=== PATIENT | female | born 1980 | race African-American/Black ===

== ENCOUNTER 2017-08-23 08:50 | Emergency (ER) | payer MEDICAID, OTHER ==
[~2017-08-23] VITALS: Ht 175.3 cm; Wt 145.1 kg
--- NOTE | 2017-08-23 08:54 | NUR ---
Patient taken to bed 03 via wheelchair.
[2017-08-23 09:00] VITALS: BP 150/88
--- NOTE | 2017-08-23 09:00 | NUR ---
PATIENT PRESENTS TO ED WITH ACUTE ONSET LOWER ABDOMINAL PAIN THAT RADIATES TO YOLA FLANKS, W/INTERMITTENT BOUTS OF N/V . PT STATES THE PAIN STARTED THIS AM AND HAS GOTTEN PROGRESSIVELY WORSE. PT DENIES ANY MEDICAL HX . DENIES DIARRHEA; SKIN IS PINK/WARM/DRY; AAOX4 WITH EVEN AND STEADY GAIT; LUNGS CLEAR BL; HR EVEN AND REGULAR; PT DENIES ANY FEVER, CP, SOB, OR COUGH AT THIS TIME; PATIENT STATES PAIN OF 10/10 AT THIS TIME; VSS; PATIENT POSITIONED FOR COMFORT; HOB ELEVATED; BEDRAILS UP X2; BED DOWN. ER MD MADE AWARE OF PT STATUS.
--- NOTE | 2017-08-23 09:29 | NUR ---
Dr. Ruiz evaluating patient at bedside.
[2017-08-23] MEDS ORDERED: NACL 0.9% 1,000 ML IV SCH (09:34)
[2017-08-23] MEDS ORDERED: fentaNYL 0.05 MG/ML VIAL IVP ONE (09:35)
[2017-08-23] MEDS ORDERED: ONDANSETRON 4 MG/2 ML VIAL IVP ONE (09:35)
--- NOTE | 2017-08-23 09:55 | NUR ---
Patient taken to CT via sancho duron.
[2017-08-23 09:57] LABS: BASOPHILS # (AUTO) 0.4 K/uL (0.00-0.22); BASOPHILS % (AUTO) 3.4 % (0.0-2.0); EOSINOPHILS # (AUTO) 0.3 K/uL (0-0.4); EOSINOPHILS % (AUTO) 2.3 % (0.0-4.0); HEMATOCRIT 41.4 % (36-48); HEMOGLOBIN 13.9 g/dL (12.0-16.0); LYMPHOCYTES # (AUTO) 3.1 K/uL (2.5-16.5); LYMPHOCYTES % (AUTO) 27.7 % (20.5-51.1); MEAN CORPUSCULAR HEMOGLOBIN 27 pg (27-31); MEAN CORPUSCULAR HGB CONC 34 g/dL (33-37); MEAN CORPUSCULAR VOLUME 80 fL (80-94); MONOCYTES # (AUTO) 0.5 K/uL (0.8-1.0); MONOCYTES % (AUTO) 4.2 % (1.7-9.3); NEUTROPHILS # (AUTO) 6.7 K/uL (1.8-7.7); NEUTROPHILS % (AUTO) 62.4 % (42.2-75.2); PLATELET COUNT (AUTO) 340 K/uL (140-450); RED BLOOD CELL COUNT(AUTO) 5.15 MIL/uL (4.20-5.40); RED CELL DISTRIBUTION WIDTH 13.3 % (11.6-13.7)
[2017-08-23 10:04] LABS: BILIRUBIN,URINE NEGATIVE (NEGATIVE); BLOOD, URINE 2+ (NEGATIVE); COLOR,URINE YELLOW (YELLOW); LEUKOCYTE ESTERASE ,URINE 2+ (NEGATIVE); NITRITE, URINE NEGATIVE (NEGATIVE); PH,URINE 5.5 (5.0-9.0); UGLUCOSE NEGATIVE (NEGATIVE)
[2017-08-23 10:11] LABS: ANION GAP 11.6 (8-16); CARBON DIOXIDE 25.3 mmol/L (21-32); CREATININE 1.2 mg/dL (0.6-1.3); POTASSIUM 3.9 mmol/L (3.5-5.1)
[2017-08-23 10:16] LABS: ALBUMIN 3.9 g/dL (3.4-5.0)
[2017-08-23 10:23] LABS: APPEARANCE,URINE TURBID (CLEAR)
[2017-08-23 10:24] LABS: RBC,URINE 3-10 (FEW) /HPF (0-5)
[2017-08-23 10:26] LABS: WBC,URINE 16-25 (MOD) /HPF (0-5)
[2017-08-23] MEDS ORDERED: KETOROLAC 30 MG/ML VIAL IVP ONE (10:35)
[2017-08-23 11:34] VITALS: BP 143/78
--- NOTE | 2017-08-23 11:35 | NUR ---
Patient discharged with v/s stable. Written and verbal after care instructions given and explained. Patient alert, oriented and verbalized understanding of instructions. Ambulatory with steady gait. All questions addressed prior to discharge. ID band removed. Patient advised to follow up with PMD. Rx of NORCO, CIPRO, MOTRIN AND FLOMAX given. Patient educated on indication of medication including possible reaction and side effects. Opportunity to ask questions provided and answered.
[2017-08-23 11:52] LABS: TOTAL BILIRUBIN 0.4 mg/dL (0.0-1.0)
== END 2017-08-23 11:35 | disposition home or self-care (01) ==
LOC: MED 08:50
DX: N20.0 Calculus of kidney (principal); N39.0 Urinary tract infection, site not specified; Z88.0 Allergy status to penicillin; Z88.6 Allergy status to analgesic agent; Z88.5 Allergy status to narcotic agent; Z90.89 Acquired absence of other organs; Z90.49 Acquired absence of other specified parts of digestive tract
CPT/HCPCS: 36415; 74176; 80053; 81001; 81025; 83690; 85025; 87086; 96361; 96374; 96375; 99285; J1885; J2405; J3010; J7030

== ENCOUNTER 2017-10-26 09:41 | Emergency (ER) | payer OTHER ==
[~2017-10-26] VITALS: Ht 175.3 cm; Wt 156.0 kg
[2017-10-26 09:45] VITALS: BP 138/79
[2017-10-26] MEDS ORDERED: NACL 0.9% 1,000 ML IV SCH (10:19)
[2017-10-26] MEDS ORDERED: HYDROmorphone PFS 2 MG/ML SYR IVP ONE (10:20)
[2017-10-26] MEDS ORDERED: KETOROLAC 30 MG/ML VIAL IVP ONE (10:20)
[2017-10-26] MEDS ORDERED: ONDANSETRON 4 MG/2 ML VIAL IVP ONE (10:20)
--- NOTE | 2017-10-26 10:30 | NUR ---
BLOOD COLLECTED BY LAB
--- NOTE | 2017-10-26 10:32 | NUR ---
PT TO CT VIA KEVIN
--- NOTE | 2017-10-26 10:41 | NUR ---
PT RETURNED FROM CT
[2017-10-26 10:53] LABS: BASOPHILS # (AUTO) 0.2 K/uL (0.00-0.22); EOSINOPHILS # (AUTO) 0.3 K/uL (0-0.4); EOSINOPHILS % (AUTO) 2.7 % (0.0-4.0); HEMATOCRIT 38.9 % (36-48); HEMOGLOBIN 13.2 g/dL (12.0-16.0); LYMPHOCYTES # (AUTO) 2.4 K/uL (2.5-16.5); LYMPHOCYTES % (AUTO) 21.1 % (20.5-51.1); MEAN CORPUSCULAR HEMOGLOBIN 28 pg (27-31); MEAN CORPUSCULAR HGB CONC 34 g/dL (33-37); MEAN CORPUSCULAR VOLUME 81 fL (80-94); MONOCYTES # (AUTO) 0.6 K/uL (0.8-1.0); MONOCYTES % (AUTO) 5.2 % (1.7-9.3); NEUTROPHILS # (AUTO) 7.7 K/uL (1.8-7.7); PLATELET COUNT (AUTO) 308 K/uL (140-450); RED BLOOD CELL COUNT(AUTO) 4.78 MIL/uL (4.20-5.40); RED CELL DISTRIBUTION WIDTH 13.4 % (11.6-13.7); WHITE BLOOD COUNT (AUTO) 11.2 K/uL (4.8-10.8)
[2017-10-26 11:26] LABS: ANION GAP 14.6 (8-16); CARBON DIOXIDE 25.3 mmol/L (21-32); CREATININE 0.9 mg/dL (0.6-1.3); POTASSIUM 3.9 mmol/L (3.5-5.1)
[2017-10-26 11:32] LABS: ALBUMIN 3.4 g/dL (3.4-5.0); TOTAL BILIRUBIN 0.3 mg/dL (0.0-1.0)
--- NOTE | 2017-10-26 11:47 | NUR ---
LAB WAS CALLED, THEY HAVE NOT PICKED UP UA YET
--- NOTE | 2017-10-26 11:48 | NUR ---
PT ADMITS PAIN HAS SUBSIDED AT THIS TIME---CONTINUES TO WAIT FOR DISPO
[2017-10-26 12:18] LABS: BILIRUBIN,URINE NEGATIVE (NEGATIVE); BLOOD, URINE 3+ (NEGATIVE); COLOR,URINE YELLOW (YELLOW); LEUKOCYTE ESTERASE ,URINE 1+ (NEGATIVE); NITRITE, URINE NEGATIVE (NEGATIVE); UGLUCOSE NEGATIVE (NEGATIVE)
[2017-10-26 12:28] LABS: APPEARANCE,URINE SLIGHTLY HAZY (CLEAR)
[2017-10-26 12:41] LABS: WBC,URINE 6-15 (FEW) /HPF (0-5)
[2017-10-26 12:42] VITALS: BP 119/87
[2017-10-26 12:42] LABS: RBC,URINE 11-20 (MOD) /HPF (0-5)
--- NOTE | 2017-10-26 12:43 | NUR ---
Patient discharged with v/s stable. Written and verbal after care instructions given and explained. Patient alert, oriented and verbalized understanding of instructions. Ambulatory with steady gait. All questions addressed prior to discharge. ID band removed. Patient advised to follow up with PMD. Rx of CIPRO/LEVSIN/FLOMAX/ given. Patient educated on indication of medication including possible reaction and side effects. Opportunity to ask questions provided and answered.
== END 2017-10-26 12:43 | disposition home or self-care (01) ==
LOC: MED 09:41
DX: N39.0 Urinary tract infection, site not specified (principal); K80.10 Calculus of gallbladder with chronic cholecystitis without obstruction; E66.01 Morbid (severe) obesity due to excess calories; I10 Essential (primary) hypertension; Z90.49 Acquired absence of other specified parts of digestive tract; Z88.0 Allergy status to penicillin; Z88.5 Allergy status to narcotic agent
CPT/HCPCS: 36415; 74176; 80053; 81001; 81025; 82150; 83690; 84703; 85025; 87086; 87186; 96361; 96374; 96375; 99285; J1170; J1885; J2405; J7030

== ENCOUNTER 2018-05-03 23:37 | Emergency (ER) | payer OTHER ==
[~2018-05-03] VITALS: Ht 175.3 cm; Wt 158.8 kg
[2018-05-03 23:42] VITALS: BP 134/92
--- NOTE | 2018-05-03 23:50 | NUR ---
PT AMBULATED TO ER BED 6.
--- NOTE | 2018-05-03 23:50 | NUR ---
37 Y/O F PRESESNTS TO THE ED W/C/O "NOT FEELING WELL OVER ALL." PT STATES, "I HAVE PRESSURE IN MY CHEST, EARS AND THROAT. I HAVE FELT NAUSEA FOR 4 DAYS AND DIARRHEA FOR 4 DAYS." PT ALSO STATES, "I THINK I BLEW OUT MY EAR DRUM IN L EAR." PT STATES N/V/D; SKIN IS INTACT, PINK/WARM/DRY; AAOX4, PERRL, WITH EVEN AND STEADY GAIT; LUNGS CLEAR BL, BREATHING UNLABORED; HR EVEN AND REGULAR, BL PERIPHERAL PULSES PRESENT; BS ACTIVE X4, NO TENDERNESS TO PALPATION, NO HEPATOSPLENOMEGALLY PALPATED, RESONANT TO PERCUSSION; PT DENIES ANY FEVER, CP, SOB, OR COUGH AT THIS TIME; PT STATES 6/10 PAIN AT THIS TIME IN L EAR THAT FEELS SHARP; VSS; PATIENT POSITIONED FOR COMFORT; HOB ELEVATED; BEDRAILS UP X2; BED DOWN.
[2018-05-04] MEDS ORDERED: AZITHROMYCIN 250 MG TAB PO ONE (00:05)
[2018-05-04 00:21] VITALS: BP 134/92
--- NOTE | 2018-05-04 00:21 | NUR ---
Patient discharged with v/s stable. Written and verbal after care instructions given and explained. Patient alert, oriented and verbalized understanding of instructions. Ambulatory with steady gait. All questions addressed prior to discharge. ID band removed. Patient advised to follow up with PMD. Rx of AZITHROMYCIN WAS given. Patient educated on indication of medication including possible reaction and side effects. Opportunity to ask questions provided and answered.
== END 2018-05-04 00:21 | disposition home or self-care (01) ==
LOC: MED 23:37
DX: H66.92 Otitis media, unspecified, left ear (principal); J45.909 Unspecified asthma, uncomplicated; Z88.0 Allergy status to penicillin; Z88.6 Allergy status to analgesic agent; Z88.8 Allergy status to other drugs, medicaments and biological substances; Z87.442 Personal history of urinary calculi
CPT/HCPCS: 99283

== ENCOUNTER 2018-08-07 10:16 | Emergency (ER) | payer OTHER ==
[~2018-08-07] VITALS: Ht 175.3 cm; Wt 158.9 kg
[2018-08-07 10:26] VITALS: BP 112/71
[2018-08-07 11:30] VITALS: BP 112/71
== END 2018-08-07 11:31 | disposition home or self-care (01) ==
LOC: MED 10:16
DX: B34.9 Viral infection, unspecified (principal); J45.909 Unspecified asthma, uncomplicated; Z90.49 Acquired absence of other specified parts of digestive tract; Z88.0 Allergy status to penicillin; Z88.5 Allergy status to narcotic agent
CPT/HCPCS: 99283

== ENCOUNTER 2018-09-11 19:05 | Emergency (ER) | payer OTHER ==
[~2018-09-11] VITALS: Ht 175.3 cm; Wt 158.8 kg
[2018-09-11 19:21] VITALS: BP 136/73
--- NOTE | 2018-09-11 19:21 | NUR ---
TO BED # 9 AMBULATORY, REPORT GIVEN TO EMILIE ROJAS
--- NOTE | 2018-09-11 19:40 | NUR ---
PT BIB SELF C/O LOWER BACK PAIN FOR PAST FEW WEEKS AND LEFT BREAST LUMP. NO TRAUMA OR INJURY TO BACK, SKIN WARM, DRY AND INTACT TO AREA. LUMP NOTED TO UNDERSIDE OF LEFT BREAST , NO OPEN, NO BLEEING OR DRAINAGE. PT LAYING IN BED, AWAKE AND ACTING APPROPRIATE, IN NO APPARENT DISTRESS.
--- NOTE | 2018-09-11 19:40 | NUR ---
Dr. Miramontes evaluating patient at bedside.
[2018-09-11 20:24] VITALS: BP 145/67
--- NOTE | 2018-09-11 20:24 | NUR ---
Patient discharged with v/s stable. Written and verbal after care instructions given and explained. Patient alert, oriented and verbalized understanding of instructions. Ambulatory with steady gait. All questions addressed prior to discharge. ID band removed. Patient advised to follow up with PMD. Rx of MMOTRIN, PREDNISONE, BACTRIM given. Patient educated on indication of medication including possible reaction and side effects. Opportunity to ask questions provided and answered.
== END 2018-09-11 20:24 | disposition home or self-care (01) ==
LOC: MED 19:05
DX: N61.0 Mastitis without abscess (principal); M54.42 Lumbago with sciatica, left side; J45.909 Unspecified asthma, uncomplicated; Z88.0 Allergy status to penicillin; Z88.5 Allergy status to narcotic agent; Z88.8 Allergy status to other drugs, medicaments and biological substances
CPT/HCPCS: 81002; 81025; 99283

== ENCOUNTER 2018-10-22 20:15 | Emergency (ER) | payer OTHER ==
[~2018-10-22] VITALS: Ht 175.3 cm; Wt 158.3 kg
[2018-10-22 20:28] VITALS: BP 131/80
--- NOTE | 2018-10-22 20:28 | NUR ---
TO BED # 8 AMBULATORY , REPORT GIVEN TO LU ROJAS
[2018-10-22 20:30] VITALS: BP 131/80
--- NOTE | 2018-10-22 21:15 | NUR ---
PATIENT LEFT WITHOUT BEING SEEN BY DR. helton. NO FURTHER CARE PROVIDED FOR PATIENT.
== END 2018-10-22 21:15 | disposition left against medical advice (07) ==
LOC: MED 20:15
DX: N64.59 Other signs and symptoms in breast (principal); Z53.21 Procedure and treatment not carried out due to patient leaving prior to being seen by health care provider

== ENCOUNTER 2018-11-01 13:20 | Emergency (ER) | payer OTHER ==
[~2018-11-01] VITALS: Ht 175.3 cm; Wt 157.9 kg
[2018-11-01 13:38] VITALS: BP 130/80
--- NOTE | 2018-11-01 15:11 | NUR ---
38 yo f bib self w/ c/o "wound opening". pt reports that she had lumpectomy last week w/ 6 inch incision, stitches removed yesterday. wound w/ areas that are open and bleeding. denies n/v/fever. wound appears clean, no pus noted.
[2018-11-01 16:06] VITALS: BP 130/80
--- NOTE | 2018-11-01 16:06 | NUR ---
Patient discharged with v/s stable. Written and verbal after care instructions given and explained. Patient verbalized understanding. Ambulatory with steady gait. All questions addressed prior to discharge. Advised to follow up with PMD.
== END 2018-11-01 16:06 | disposition home or self-care (01) ==
LOC: MED 13:20
DX: L76.22 Postprocedural hemorrhage of skin and subcutaneous tissue following other procedure (principal); Z48.01 Encounter for change or removal of surgical wound dressing; J45.909 Unspecified asthma, uncomplicated; Z88.0 Allergy status to penicillin; Z88.5 Allergy status to narcotic agent; Z88.8 Allergy status to other drugs, medicaments and biological substances
CPT/HCPCS: 99281; 99283

== ENCOUNTER 2018-11-02 01:29 | Emergency (ER) | payer OTHER ==
[~2018-11-02] VITALS: Ht 175.3 cm; Wt 158.3 kg
[2018-11-02 01:34] VITALS: BP 120/80
--- NOTE | 2018-11-02 01:34 | NUR ---
TO BED # 2 AMBULATORY, REPORT GIVEN TO GARCÍA ROJAS
--- NOTE | 2018-11-02 02:00 | NUR ---
PT BIB SELF C/O WOUND CHECK. PT STATES SHE HAD A ABCESS REMOVED FROM HER LEFT BREAST ON 10/22/18, PT SEEN PRIMARY PROVIDER TODAY AND THE STITCHES WERE REMOVED, PT PRESENTED HERSELF TO [facility] ER AT 1200 WERE STERI-STRIPS WERE APPLIED, PT CAME BACK TONIGHT AFTER FEELING THE INCISION OPENED AGAIN. LEFT BREAST HAS A 6 CM DEHISCENCE W/ MILD SLOTH AND REDNESS, NO SWELLING OR DISCHARGE AT THIS TIME. PMH: ASTHMA
--- NOTE | 2018-11-02 02:30 | NUR ---
STERI-STRIP AND OPTIFOAM BANDAGE APPLIED TO LEFT BREAST. DARIEN IWLLETT AT BEDSIDE DOUGH SCALER AND MIXER. PT TOLERATED WELL.
[2018-11-02 03:05] VITALS: BP 123/78
== END 2018-11-02 03:00 | disposition home or self-care (01) ==
LOC: MED 01:29
DX: S21.002D Unspecified open wound of left breast, subsequent encounter (principal); J45.909 Unspecified asthma, uncomplicated; Z90.49 Acquired absence of other specified parts of digestive tract; Z88.0 Allergy status to penicillin; Z88.5 Allergy status to narcotic agent; Z88.8 Allergy status to other drugs, medicaments and biological substances; X58.XXXD Exposure to other specified factors, subsequent encounter
CPT/HCPCS: 99281

== ENCOUNTER 2018-11-22 18:28 | Emergency (ER) | payer OTHER ==
[~2018-11-22] VITALS: Ht 175.3 cm; Wt 142.9 kg
[2018-11-22 18:50] VITALS: BP 144/89
--- NOTE | 2018-11-22 18:59 | NUR ---
PT TRIAGED, GIVEN URINE CUP AND SENT TO ER MARYBYBERYL.
[2018-11-22] MEDS ORDERED: NACL 0.9% 500 ML IV ONE (20:13)
[2018-11-22 20:30] LABS: BASOPHILS % (AUTO) 0.1 % (0.0-2.0); HEMATOCRIT 41.5 % (36-48); HEMOGLOBIN 13.7 g/dL (12.0-16.0); LYMPHOCYTES # (AUTO) 1.6 K/uL (2.5-16.5); MEAN CORPUSCULAR HEMOGLOBIN 26 pg (27-31); MEAN CORPUSCULAR HGB CONC 33 g/dL (33-37); MEAN CORPUSCULAR VOLUME 80.4 fL (80-94); MONOCYTES # (AUTO) 0.2 K/uL (0.8-1.0); MONOCYTES % (AUTO) 1.8 % (1.7-9.3); NEUTROPHILS # (AUTO) 10.6 K/uL (1.8-7.7); NEUTROPHILS % (AUTO) 85.1 % (42.2-75.2); PLATELET COUNT (AUTO) 348 K/uL (140-450); RED BLOOD CELL COUNT(AUTO) 5.17 MIL/uL (4.20-5.40); RED CELL DISTRIBUTION WIDTH 14.4 % (11.6-13.7); WHITE BLOOD COUNT (AUTO) 12.5 K/uL (4.8-10.8)
--- NOTE | 2018-11-22 20:30 | NUR ---
PT BIB SELF C/O HIGH BS READING AT HOME >600, BS AT TRIAGE 472. PT REPORTS POLYURIA. DENIES CP/ FEVERS/ SOB/ NVD AT THIS TIME. PT STATES SHE HAS INCISION ON L BREAST FROM LUMPECTOMY THAT IS LEAKING AND SHE THINKS MAY BE CAUSING HIGH BS. VSS. ER MD TO SEE PT. WILL CONTINUE TO MONITOR. HX---GESTATIONAL HTN, CHOLECYSTECTOMY, APPENDECTOMY MEDS---NONE
--- NOTE | 2018-11-22 20:40 | NUR ---
Dr. Miramontes evaluating patient at bedside.
[2018-11-22 20:45] LABS: ALBUMIN 4.2 g/dL (3.4-5.0); ANION GAP 12.7 (8-16); ASPARTATE AMINOTRANSFERASE 19 U/L (15-37); CARBON DIOXIDE 26.5 mmol/L (21-32); CHLORIDE 98 mmol/L (98-107); CREATININE 1.1 mg/dL (0.6-1.3); GFR ARICAN-AMERICAN 71 mL/min (>90); POTASSIUM 4.2 mmol/L (3.5-5.1); SODIUM SERUM 133 mmol/L (136-145); TOTAL BILIRUBIN 0.5 mg/dL (0.0-1.0); UREA NITROGEN, BLOOD 16 mg/dL (7-18)
[2018-11-22 20:47] LABS: GLUCOSE 429 mg/dL (74-106)
[2018-11-22 20:52] LABS: ACETONE, SERUM NEGATIVE (NEGATIVE)
[2018-11-22] MEDS ORDERED: INSULIN REGULAR, HUMAN 100 UNIT/ML VIAL IVP ONE ×2 (21:05→22:25)
--- NOTE | 2018-11-22 21:31 | NUR ---
PT REPORTS SHE FEELS LIKE SOMEONE IS SITTING ON HER CHEST. VSS. PT REPORTS MILD DISCOMFORT AT 2/10. NO EDEMA, CAP REFIL <2 SEC, HEART RRR. PT DENIES SOB, ER MD NOTIFIED.
[2018-11-22 23:15] VITALS: BP 130/68
--- NOTE | 2018-11-22 23:15 | NUR ---
Patient discharged with v/s stable. Written and verbal after care instructions given and explained. Patient verbalized understanding. Ambulatory with steady gait. All questions addressed prior to discharge. Advised to follow up with PMD. PT WAITING FOR MOM TO PICK HER UP IN LOBBY.
== END 2018-11-22 23:15 | disposition home or self-care (01) ==
LOC: MED 18:28
DX: E11.65 Type 2 diabetes mellitus with hyperglycemia (principal); J45.909 Unspecified asthma, uncomplicated; Z88.0 Allergy status to penicillin; Z88.5 Allergy status to narcotic agent; Z88.8 Allergy status to other drugs, medicaments and biological substances
CPT/HCPCS: 36415; 80053; 81002; 81025; 82009; 85025; 93005; 96361; 96374; 96375; 99284; J1815; J7030; 96376

== ENCOUNTER 2019-04-09 12:32 | Emergency (ER) | payer OTHER ==
[~2019-04-09] VITALS: Ht 175.3 cm; Wt 154.2 kg
[2019-04-09 13:12] VITALS: BP 141/96
--- NOTE | 2019-04-09 14:26 | NUR ---
38/F BIB SELF C/O HIGH BLOOD SUGAR X TODAY. PT STATES BS WAS 421 LAST SHE CHECKED, CURRENT BS 381. PT STAES SHE TOOK MOM METFORMIN. MEDHX:DIABETES. AAOX 4. PATIENT STATES PAIN OF 0/10 AT THIS TIME. PATIENT POSITIONED FOR COMFORT; HOB ELEVATED; BEDRAILS UP X2; BED DOWN. ER MD MADE AWARE OF PT STATUS.
[2019-04-09] MEDS ORDERED: NACL 0.9% 1,000 ML IV ONE (14:45)
[2019-04-09 15:20] LABS: BASOPHILS # (AUTO) 0.1 K/uL (0.00-0.22); BASOPHILS % (AUTO) 0.8 % (0.0-2.0); EOSINOPHILS # (AUTO) 0.3 K/uL (0-0.4); EOSINOPHILS % (AUTO) 2.5 % (0.0-4.0); HEMATOCRIT 40.5 % (36-48); HEMOGLOBIN 13.4 g/dL (12.0-16.0); LYMPHOCYTES # (AUTO) 3.1 K/uL (2.5-16.5); LYMPHOCYTES % (AUTO) 27.4 % (20.5-51.1); MEAN CORPUSCULAR HEMOGLOBIN 26 pg (27-31); MEAN CORPUSCULAR HGB CONC 33 g/dL (33-37); MEAN CORPUSCULAR VOLUME 79.7 fL (80-94); MONOCYTES # (AUTO) 0.4 K/uL (0.8-1.0); MONOCYTES % (AUTO) 3.6 % (1.7-9.3); NEUTROPHILS # (AUTO) 7.4 K/uL (1.8-7.7); NEUTROPHILS % (AUTO) 65.7 % (42.2-75.2); PLATELET COUNT (AUTO) 325 K/uL (140-450); RED BLOOD CELL COUNT(AUTO) 5.09 MIL/uL (4.20-5.40); RED CELL DISTRIBUTION WIDTH 14.7 % (11.6-13.7); WHITE BLOOD COUNT (AUTO) 11.2 K/uL (4.8-10.8)
[2019-04-09 15:47] LABS: ANION GAP 15.5 (8-16); CARBON DIOXIDE 23.6 mmol/L (21-32); CREATININE 0.9 mg/dL (0.6-1.3); POTASSIUM 4.1 mmol/L (3.5-5.1)
[2019-04-09 15:52] LABS: ALBUMIN 3.7 g/dL (3.4-5.0); TOTAL BILIRUBIN 0.4 mg/dL (0.0-1.0)
[2019-04-09 15:57] LABS: APPEARANCE,URINE SL CLOUDY (CLEAR); BILIRUBIN,URINE NEGATIVE (NEGATIVE); BLOOD, URINE 3+ (NEGATIVE); COLOR,URINE YELLOW (YELLOW); LEUKOCYTE ESTERASE ,URINE TRACE (NEGATIVE); NITRITE, URINE NEGATIVE (NEGATIVE); UGLUCOSE 3+ (NEGATIVE)
[2019-04-09 16:15] LABS: RBC,URINE TOO NUMEROUS TO COUN /HPF (0-5)
--- NOTE | 2019-04-09 16:45 | NUR ---
IV removed, catheter intact and site benign. Applied folded 4x4 gauze and tape to stop bleeding.
[2019-04-09 16:46] VITALS: BP 121/79
--- NOTE | 2019-04-09 16:46 | NUR ---
Patient discharged with v/s stable. Written and verbal after care instructions given and explained. Patient alert, oriented and verbalized understanding of instructions. Ambulatory with steady gait. All questions addressed prior to discharge. ID band removed. Patient advised to follow up with PMD. Rx of Keflex 500mg given. Patient educated on indication of medication including possible reaction and side effects. Opportunity to ask questions provided and answered.
== END 2019-04-09 16:46 | disposition home or self-care (01) ==
LOC: MED 12:32
DX: E11.65 Type 2 diabetes mellitus with hyperglycemia (principal); N39.0 Urinary tract infection, site not specified; R03.0 Elevated blood-pressure reading, without diagnosis of hypertension; J45.909 Unspecified asthma, uncomplicated; Z88.0 Allergy status to penicillin; Z88.5 Allergy status to narcotic agent; Z88.8 Allergy status to other drugs, medicaments and biological substances
CPT/HCPCS: 36415; 80053; 81001; 81025; 82948; 85025; 87086; 96360; 99283; J7030

== ENCOUNTER 2019-05-17 11:43 | Emergency (ER) | payer OTHER ==
[~2019-05-17] VITALS: Ht 175.3 cm; Wt 152.9 kg
[2019-05-17 12:04] VITALS: BP 127/83
--- NOTE | 2019-05-17 12:07 | NUR ---
PT TO ER BED 12
--- NOTE | 2019-05-17 12:14 | NUR ---
C/O HEADACHE WITH N/V X 1 DAY. DENIES TRAUMA OR INJURY. PAIN 05/03. AA0X4. BED IS DOWN, LOCKED, BED RAIL X 1, ERMD TO SEE PT. HX-DM
--- NOTE | 2019-05-17 13:00 | NUR ---
PATIENT LEFT WITHOUT BEING SEEN BY DR. ELISE. NO FURTHER CARE PROVIDED FOR PATIENT.
== END 2019-05-17 13:00 | disposition left against medical advice (07) ==
LOC: MED 11:43
DX: R51 Headache (principal); Z53.21 Procedure and treatment not carried out due to patient leaving prior to being seen by health care provider

== ENCOUNTER 2019-10-02 19:13 | Emergency (ER) | payer OTHER ==
[~2019-10-02] VITALS: Ht 175.3 cm; Wt 151.0 kg
[2019-10-02 19:20] VITALS: BP 135/77
--- NOTE | 2019-10-02 19:23 | NUR ---
TO LOBBY A/W BED AMBULATORY
--- NOTE | 2019-10-02 21:32 | NUR ---
PATIENT LEFT WITHOUT BEING SEEN BY DR. VASQUEZ. PT CALLED X3. NO FURTHER CARE PROVIDED FOR PATIENT.
== END 2019-10-02 21:32 | disposition left against medical advice (07) ==
LOC: MED 19:13
DX: R03.0 Elevated blood-pressure reading, without diagnosis of hypertension (principal); R42 Dizziness and giddiness; R19.7 Diarrhea, unspecified; R11.0 Nausea; Z53.21 Procedure and treatment not carried out due to patient leaving prior to being seen by health care provider

== ENCOUNTER 2020-04-09 16:21 | Emergency (ER) | payer OTHER, SELFPAY ==
[~2020-04-09] VITALS: Ht 167.6 cm; Wt 172.4 kg
[2020-04-09 16:28] VITALS: BP 143/93
--- NOTE | 2020-04-09 16:30 | NUR ---
PT PLACED IN TENT FOR COVID PRECAUTIONS
--- NOTE | 2020-04-09 16:36 | NUR ---
39 Y/O FEMALE FROM HOME C/O HEADACHE, DRY COUGH, LOSS OF APPETITE, DIMINISHED SMELL AND TASTE AND DIARRHEA X 1 WK. DENIES V/D. RR EVEN AND UNLABORED, SLIGHTLY T[place]YPNIC. SKIN WARM AND DRY TO THE TOUCH. AWAKE AND ALERT. DOES NOT APPEAR IN DISTRESS
--- NOTE | 2020-04-09 16:42 | NUR ---
COVID SWAB COLLECTED FROM PT
[2020-04-09] MEDS ORDERED: ONDANSETRON 4 MG/2 ML VIAL IVP ONE (17:10)
[2020-04-09] MEDS ORDERED: NACL 0.9% 1,000 ML IV ONE (17:10)
[2020-04-09 17:48] VITALS: BP 143/93
--- NOTE | 2020-04-09 17:48 | NUR ---
Patient discharged with v/s stable. Written and verbal after care instructions given and explained. Patient alert, oriented and verbalized understanding of instructions. Ambulatory with steady gait. All questions addressed prior to discharge. ID band removed. Patient advised to follow up with PMD. Rx of Promethazine, Flucticasone, Albuterol and Ibuprofen given. Patient educated on indication of medication including possible reaction and side effects. Opportunity to ask questions provided and answered.
--- NOTE | 2020-04-10 13:48 | NUR ---
POSITIVE COVID RESULTS RECEIVED FROM LAB. REQUESTED HARD COPY TO BE TAKEN TO LAB. COPY WILL BE PLACED IN INFECTION CONTROL'S MAILBOX.
== END 2020-04-09 17:48 | disposition home or self-care (01) ==
LOC: MED 16:21 → EEVIPCON 16:21 → MED 17:48
DX: U07.1 COVID-19 (principal); J45.909 Unspecified asthma, uncomplicated; E11.9 Type 2 diabetes mellitus without complications; I10 Essential (primary) hypertension; Z88.0 Allergy status to penicillin; Z88.5 Allergy status to narcotic agent; Z88.8 Allergy status to other drugs, medicaments and biological substances; Z90.49 Acquired absence of other specified parts of digestive tract
CPT/HCPCS: 71045; 99284; U0003

== ENCOUNTER 2020-04-24 20:28 | Emergency (ER) | payer OTHER, SELFPAY ==
[~2020-04-24] VITALS: Ht 175.3 cm; Wt 147.4 kg
[2020-04-24 20:35] VITALS: BP 146/93
[2020-04-24 22:14] VITALS: BP 146/93
== END 2020-04-24 22:14 | disposition home or self-care (01) ==
LOC: MED 20:28
DX: U07.1 COVID-19 (principal); R07.9 Chest pain, unspecified; R06.00 Dyspnea, unspecified; E11.9 Type 2 diabetes mellitus without complications; I10 Essential (primary) hypertension; J45.909 Unspecified asthma, uncomplicated; Z88.0 Allergy status to penicillin; Z88.8 Allergy status to other drugs, medicaments and biological substances; Z88.6 Allergy status to analgesic agent
CPT/HCPCS: 71045; 93005; 99285; U0003; 99284

== ENCOUNTER 2020-12-14 18:48 | Emergency (ER) | payer OTHER, SELFPAY ==
[~2020-12-14] VITALS: Ht 175.3 cm; Wt 139.3 kg
[2020-12-14 18:59] VITALS: BP 134/73
[2020-12-14] MEDS: KETOROLAC 30 MG/ML VIAL IM ONE (19:35)
[2020-12-14] MEDS: diazePAM 5 MG TAB PO ONE (19:36)
[2020-12-14] MEDS ORDERED: METH750T5 PO (20:24)
[2020-12-14 20:30] VITALS: BP 134/73
== END 2020-12-14 20:30 | disposition home or self-care (01) ==
LOC: MED 18:48
DX: S39.012A Strain of muscle, fascia and tendon of lower back, initial encounter (principal); E11.9 Type 2 diabetes mellitus without complications; X58.XXXA Exposure to other specified factors, initial encounter; Y93.89 Activity, other specified; Y92.89 Other specified places as the place of occurrence of the external cause; Y99.8 Other external cause status
CPT/HCPCS: 82948; 96372; 99283; J1885

== ENCOUNTER 2021-01-03 09:55 | Emergency (ER) | payer OTHER, SELFPAY ==
[~2021-01-03] VITALS: Ht 175.3 cm; Wt 140.2 kg
[~2021-01-03 09:55] MED LIST: METH750T5 PO
[2021-01-03 10:00] VITALS: BP 134/80
--- NOTE | 2021-01-03 10:30 | NUR ---
40 YEAR OLD FEMALE COMPLAINS OF COUGH, SORE THROAT, NASAL CONGESTION X 3 DAYS. PT AOX4, BREATHING EVEN AND UNLABORED, SKIN WARM AND DRY. BED IN LOWEST POSITION, LOCKED, BED RAIL UPX1. PMH - DM2 ALLERGIES - CHARTED
[2021-01-03] MEDS ORDERED: ACETAMINOPHEN 650 MG/20.3 ML UDC PO STA (10:34)
[2021-01-03] MEDS ORDERED: guaiFENesin 20 MG/ML UDC PO STA (10:34)
[2021-01-03] MEDS ORDERED: DEXAMETHASONE 10 MG/ML VIAL IM ONE (10:35)
[2021-01-03] MEDS ORDERED: KETOROLAC 30 MG/ML VIAL IM ONE (10:35)
[2021-01-03] MEDS ORDERED: AZIT250T11 PO (10:39)
[2021-01-03] MEDS ORDERED: GUAI-934 PO (10:39)
--- NOTE | 2021-01-03 10:50 | NUR ---
PT MEDICATIONS ADMINISTERED ORDERED
--- NOTE | 2021-01-03 11:06 | NUR ---
Flaquito frank in [facility] - 01/03/21 at 1113 by MEDJJ PT VERBALLY ABUSE TO STAFF, SECURITY AT BEDSIDE.
[2021-01-03 11:12] VITALS: BP 134/80
--- NOTE | 2021-01-03 11:13 | NUR ---
Patient discharged with v/s stable. Written and verbal after care instructions given and explained. Patient alert, oriented and verbalized understanding of instructions. Ambulatory with steady gait. All questions addressed prior to discharge. ID band removed. Patient advised to follow up with PMD. Rx of azithromycin and guaifen/phenyleph/acetaminophen given. Patient educated on indication of medication including possible reaction and side effects. Opportunity to ask questions provided and answered.
[2021-01-03] MEDS ORDERED: ONDA8TAB87 PO (21:48)
== END 2021-01-03 11:13 | disposition home or self-care (01) ==
LOC: MED 09:55
DX: J06.9 Acute upper respiratory infection, unspecified (principal); Z20.822 Contact with and (suspected) exposure to COVID-19; E11.9 Type 2 diabetes mellitus without complications
CPT/HCPCS: 96372; 99284; J1100; J1885; U0003

== ENCOUNTER 2021-01-03 20:09 | Emergency (ER) | payer OTHER, SELFPAY ==
[~2021-01-03] VITALS: Ht 175.3 cm; Wt 140.2 kg
[~2021-01-03 20:09] MED LIST changes: +AZIT250T11 PO; +GUAI-934 PO
[2021-01-03 20:20] VITALS: BP 158/82
--- NOTE | 2021-01-03 20:28 | NUR ---
PT AMBULATORY TO LOBBY TO [facility]
--- NOTE | 2021-01-03 20:35 | NUR ---
40/F BIB SELF COMPLAINING OF NAUSEA, DIARRHEA, DIZZINESS, HYPERGLYCEMIA. PT DENIES ANY PAIN AT THIS TIME. PT AAOX4, AMBULATORY, RESPIRATIONS EVEN AND UNLABORED TO ROOM AIR. PT HOOKED TO MONITORS, VS STABLE. ACCU CHECK DONE BLOOD SUGAT 573. MD MADE AWARE. WILL CONTINUE TO MONITOR. PMH: ASTHMA, DM ALLERGY: PCN, METFORMIN, DIPHENHYDRAMINE, MORPHINE
--- NOTE | 2021-01-03 20:43 | NUR ---
PT AMBULATED TO BED #11
[2021-01-03] MEDS ORDERED: ONDANSETRON 4 MG ODT PO ONE (20:50)
[2021-01-03 21:00] VITALS: BP 140/80
--- NOTE | 2021-01-03 21:41 | NUR ---
Dr. Ruiz examining patient.
[2021-01-03] MEDS ORDERED: ONDA8TAB87 PO (21:48)
== END 2021-01-03 21:55 | disposition home or self-care (01) ==
LOC: MED 20:09
DX: E11.65 Type 2 diabetes mellitus with hyperglycemia (principal); I10 Essential (primary) hypertension; J45.909 Unspecified asthma, uncomplicated; Z88.0 Allergy status to penicillin; Z88.6 Allergy status to analgesic agent
CPT/HCPCS: 82948; 99283; Q0162

== ENCOUNTER 2021-03-19 08:42 | Emergency (ER) | payer OTHER ==
[~2021-03-19] VITALS: Ht 175.3 cm; Wt 138.8 kg
[~2021-03-19 08:42] MED LIST changes: +ONDA8TAB87 PO
[2021-03-19 08:48] VITALS: BP 131/87
--- NOTE | 2021-03-19 08:53 | NUR ---
pt ambulated to bed 11.
--- NOTE | 2021-03-19 08:59 | NUR ---
DR TUCKER AT BEDSIDE EXAMINING PATIENT
[2021-03-19] MEDS ORDERED: KETOROLAC 30 MG/ML VIAL IM ONE (09:05)
--- NOTE | 2021-03-19 09:26 | NUR ---
40/ FEMALE C/O RIGHT UPPER BACK PAIN X TODAY. DENIES DYSURIA. PATIENT STATES PAIN "RADIATES FROM NECK TO RIGHT ARM DOWN TO ELBOW." STATES WOKE AND WAS STRETCHING WHEN HEARD A POP AND FELT THE PAIN. STATES PAIN IS 10/10 AND UNABLE TO MOVE UPPER BODY WITHOUT ANY PAIN PMH: DM,ASTHMA, APPENDECTOMY, GALL BLADDER REMOVAL
[2021-03-19 09:48] VITALS: BP 125/78
== END 2021-03-19 09:48 | disposition home or self-care (01) ==
LOC: MED 08:42
DX: M54.6 Pain in thoracic spine (principal); E11.65 Type 2 diabetes mellitus with hyperglycemia; J45.909 Unspecified asthma, uncomplicated; I10 Essential (primary) hypertension; Z79.899 Other long term (current) drug therapy; Z88.0 Allergy status to penicillin; Z88.8 Allergy status to other drugs, medicaments and biological substances; Z88.5 Allergy status to narcotic agent
CPT/HCPCS: 81002; 81025; 96372; 99283; J1885

== ENCOUNTER 2021-05-31 17:28 | Emergency (ER) | payer OTHER ==
[~2021-05-31] VITALS: Ht 175.3 cm; Wt 139.3 kg
[2021-05-31 18:33] VITALS: BP 139/70
--- NOTE | 2021-05-31 18:42 | NUR ---
Flaquito frank in ED - 05/31/21 at 1843 by [facility] CALLED X 1. NO SHOW.PATIENT LEFT WITHOUT BEING TRIAGED. NO FURTHER CARE PROVIDED FOR PATIENT.
--- NOTE | 2021-05-31 18:43 | NUR ---
patient to lobby for next available bed.
--- NOTE | 2021-05-31 19:53 | NUR ---
PT INFORMED ADMIT STUDY ASSISTANT THAT SHE WAS LEAVING. PATIENT LEFT WITHOUT BEING SEEN BY DR. HERNANDEZ. NO FURTHER CARE PROVIDED FOR PATIENT.
== END 2021-05-31 19:53 | disposition left against medical advice (07) ==
LOC: MED 17:28
DX: H57.89 Other specified disorders of eye and adnexa (principal); Z53.21 Procedure and treatment not carried out due to patient leaving prior to being seen by health care provider

== ENCOUNTER 2021-10-05 10:20 | Emergency (ER) | payer OTHER ==
[~2021-10-05] VITALS: Ht 175.3 cm; Wt 132.0 kg
[2021-10-05 10:29] VITALS: BP 139/79
--- NOTE | 2021-10-05 10:39 | NUR ---
TENT 3. HANDED ON URINE CUP.
--- NOTE | 2021-10-05 10:42 | NUR ---
BIB SELF C/O DIZZINESS, RANDALL X 3 DAYS , DIARRHEA , 2/10 MID ABD PAIN X 1 WEEK. PMH: DM, ASTHMA
--- NOTE | 2021-10-05 10:43 | NUR ---
BLOOD SUGAR 196 AT THIS TIME.
[2021-10-05] MEDS ORDERED: ONDA8TAB87 PO (12:30)
[2021-10-05] MEDS ORDERED: MECL-303 PO (12:30)
--- NOTE | 2021-10-05 14:20 | NUR ---
COVID PCR SWAB DONE.
--- NOTE | 2021-10-05 14:25 | NUR ---
PT CAN'T PROVIDED URINE AT THIS TIME.
[2021-10-05 14:27] VITALS: BP 127/65
--- NOTE | 2021-10-05 14:27 | NUR ---
Patient discharged with v/s stable. Written and verbal after care instructions given and explained. Patient alert, oriented and verbalized understanding of instructions. Ambulatory with steady gait. All questions addressed prior to discharge. ID band removed. Patient advised to follow up with PMD. Rx of ZOFRAN AND ANTIVERT given. Patient educated on indication of medication including possible reaction and side effects. Opportunity to ask questions provided and answered.
== END 2021-10-05 14:27 | disposition home or self-care (01) ==
LOC: MED 10:20
DX: R42 Dizziness and giddiness (principal); Z20.822 Contact with and (suspected) exposure to COVID-19; R11.0 Nausea; J45.909 Unspecified asthma, uncomplicated; E11.9 Type 2 diabetes mellitus without complications; I10 Essential (primary) hypertension; Z90.49 Acquired absence of other specified parts of digestive tract; Z98.890 Other specified postprocedural states; Z79.899 Other long term (current) drug therapy; Z88.0 Allergy status to penicillin; Z88.8 Allergy status to other drugs, medicaments and biological substances; Z88.5 Allergy status to narcotic agent
CPT/HCPCS: 99283; U0003

== ENCOUNTER 2022-03-11 10:18 | Emergency (ER) | payer OTHER ==
[~2022-03-11] VITALS: Ht 175.3 cm; Wt 133.4 kg
[~2022-03-11 10:18] MED LIST changes: +MECL-303 PO
[2022-03-11 10:38] VITALS: BP 150/84
[2022-03-11] MEDS ORDERED: KETOROLAC 30 MG/ML VIAL IM ONE (10:55)
[2022-03-11] MEDS ORDERED: LID5T TP (11:37)
[2022-03-11] MEDS ORDERED: NAPR-54 PO (11:37)
[2022-03-11] MEDS ORDERED: METH-1681 PO (11:37)
--- NOTE | 2022-03-11 11:37 | NUR ---
PT'S LEFT KNEE WRAPPED WITH 3" JOVITA WRAP. CMS WNL BEFORE AND AFTER.
[2022-03-11 11:46] VITALS: BP 145/78
--- NOTE | 2022-03-11 11:47 | NUR ---
Patient discharged with v/s stable. Written and verbal after care instructions given and explained. Patient alert, oriented and verbalized understanding of instructions. Ambulatory with steady gait. All questions addressed prior to discharge. ID band removed. Patient advised to follow up with PMD. Rx of LIDODERM, ROBAXIN, NAPROSYN given. Patient educated on indication of medication including possible reaction and side effects. Opportunity to ask questions provided and answered.
== END 2022-03-11 11:47 | disposition home or self-care (01) ==
LOC: MED 10:18
DX: S83.92XA Sprain of unspecified site of left knee, initial encounter (principal); J45.909 Unspecified asthma, uncomplicated; E11.9 Type 2 diabetes mellitus without complications; I10 Essential (primary) hypertension; Z79.899 Other long term (current) drug therapy; Z79.1 Long term (current) use of non-steroidal anti-inflammatories (NSAID); Z79.2 Long term (current) use of antibiotics; Z88.0 Allergy status to penicillin; Z88.8 Allergy status to other drugs, medicaments and biological substances; Z88.5 Allergy status to narcotic agent; X58.XXXA Exposure to other specified factors, initial encounter; Y92.89 Other specified places as the place of occurrence of the external cause; Y93.89 Activity, other specified; Y99.8 Other external cause status
CPT/HCPCS: 73562; 81025; 96372; 99283; J1885

== ENCOUNTER 2023-01-20 11:23 | Emergency (ER) | payer OTHER ==
[~2023-01-20] VITALS: Ht 175.3 cm; Wt 135.2 kg
[~2023-01-20 11:23] MED LIST changes: +LID5T TP; +METH-1681 PO; +NAPR-54 PO
[2023-01-20 11:27] VITALS: BP 129/80
--- NOTE | 2023-01-20 11:33 | NUR ---
AMBULATED TO BED 7 WITH STEADY GAIT
[2023-01-20] MEDS ORDERED: BLOOD GLUCOSE MONITORING 1 DEV DEV FS ONE (11:40)
--- NOTE | 2023-01-20 11:45 | NUR ---
Glucose check at bedside. 223 blood glucose. Paitent tolerated.
--- NOTE | 2023-01-20 12:02 | NUR ---
DR FREITAS AT BEDSIDE FOR EVAL
[2023-01-20] MEDS ORDERED: MECLIZINE 25 MG TAB PO ONE (12:10)
--- NOTE | 2023-01-20 13:13 | NUR ---
BLOOD WALKED TO LAB
[2023-01-20 13:36] LABS: BASOPHILS % (AUTO) 0.5 % (0.0-2.0); EOSINOPHILS # (AUTO) 0.3 K/uL (0-0.4); EOSINOPHILS % (AUTO) 3.2 % (0.0-4.0); HEMATOCRIT 36.4 % (36-48); HEMOGLOBIN 12.4 g/dL (12.0-16.0); LYMPHOCYTES % (AUTO) 19.1 % (20.5-51.1); MEAN CORPUSCULAR HEMOGLOBIN 26 pg (27-31); MEAN CORPUSCULAR HGB CONC 34 g/dL (33-37); MEAN CORPUSCULAR VOLUME 76.4 fL (80-94); MONOCYTES # (AUTO) 0.4 K/uL (0.8-1.0); MONOCYTES % (AUTO) 3.9 % (1.7-9.3); NEUTROPHILS # (AUTO) 7.6 K/uL (1.8-7.7); NEUTROPHILS % (AUTO) 73.3 % (42.2-75.2); PLATELET COUNT (AUTO) 294 K/uL (140-450); RED BLOOD CELL COUNT(AUTO) 4.76 MIL/uL (4.20-5.40); RED CELL DISTRIBUTION WIDTH 14.8 % (11.6-13.7); WHITE BLOOD COUNT (AUTO) 10.3 K/uL (4.8-10.8)
[2023-01-20 13:49] LABS: ALBUMIN 3.5 g/dL (3.4-5.0); ANION GAP 14.6 (8-16); ASPARTATE AMINOTRANSFERASE 28 U/L (15-37); CARBON DIOXIDE 22.1 mmol/L (21-32); CHLORIDE 104 mmol/L (98-107); CREATININE 0.8 mg/dL (0.6-1.3); GFR ARICAN-AMERICAN 101 mL/min (>90); GLUCOSE 193 mg/dL (74-106); POTASSIUM 3.7 mmol/L (3.5-5.1); SODIUM SERUM 137 mmol/L (136-145); TOTAL BILIRUBIN 0.5 mg/dL (0.0-1.0); UREA NITROGEN, BLOOD 7 mg/dL (7-18)
[2023-01-20] MEDS ORDERED: MECL-303 PO (14:17)
[2023-01-20 14:34] VITALS: BP 124/78
--- NOTE | 2023-01-20 14:36 | NUR ---
Patient discharged with v/s stable. Written and verbal after care instructions given and explained. Patient alert, oriented and verbalized understanding of instructions. Ambulatory with steady gait. All questions addressed prior to discharge. ID band removed. Patient advised to follow up with PMD. Rx of Antivert given. Patient educated on indication of medication including possible reaction and side effects. Opportunity to ask questions provided and answered.
== END 2023-01-20 14:34 | disposition home or self-care (01) ==
LOC: MED 11:23
DX: R42 Dizziness and giddiness (principal); J45.909 Unspecified asthma, uncomplicated; E11.9 Type 2 diabetes mellitus without complications; I10 Essential (primary) hypertension; Z88.0 Allergy status to penicillin; Z88.5 Allergy status to narcotic agent; Z88.8 Allergy status to other drugs, medicaments and biological substances; Z79.899 Other long term (current) drug therapy
CPT/HCPCS: 36415; 80053; 81025; 84484; 85025; 93005; 99284; J8597

== ENCOUNTER 2023-02-10 10:28 | Emergency (ER) | payer OTHER ==
[~2023-02-10] VITALS: Ht 175.3 cm; Wt 134.7 kg
[2023-02-10 10:37] VITALS: BP 135/84
--- NOTE | 2023-02-10 10:48 | NUR ---
PATIENT AMBULATED TO BED 3 WITHOUT ASSISTANCE.
[2023-02-10] MEDS ORDERED: PRED50TA2 PO (11:25)
[2023-02-10] MEDS ORDERED: CIPR500T4 PO (11:25)
[2023-02-10] MEDS ORDERED: LORA10TA19 PO (11:25)
--- NOTE | 2023-02-10 11:30 | NUR ---
Patient discharged with v/s stable. Written and verbal after care instructions given and explained. Patient alert, oriented and verbalized understanding of instructions. Ambulatory with steady gait. All questions addressed prior to discharge. ID band removed. Patient advised to follow up with PMD. Rx of CIPRO, CLARITIN, PREDNISONE given. Patient educated on indication of medication including possible reaction and side effects. Opportunity to ask questions provided and answered.
== END 2023-02-10 11:30 | disposition home or self-care (01) ==
LOC: MED 10:28
DX: H92.03 Otalgia, bilateral (principal); J45.909 Unspecified asthma, uncomplicated; I10 Essential (primary) hypertension; E11.9 Type 2 diabetes mellitus without complications; Z88.0 Allergy status to penicillin; Z79.1 Long term (current) use of non-steroidal anti-inflammatories (NSAID); Z88.8 Allergy status to other drugs, medicaments and biological substances; Z79.4 Long term (current) use of insulin; Z79.899 Other long term (current) drug therapy
CPT/HCPCS: 99283

== ENCOUNTER 2023-09-20 14:25 | Emergency (ER) | payer OTHER ==
[~2023-09-20] VITALS: Ht 175.3 cm; Wt 124.7 kg
[~2023-09-20 14:25] MED LIST changes: +CIPR500T4 PO; +LORA10TA19 PO; +PRED50TA2 PO
[2023-09-20 14:43] VITALS: BP 135/70; PULSE 97; RESP 18; TEMP 98.3; O2SAT 98
[2023-09-20] MEDS ORDERED: guaiFENesin DM 200/20 MG-10 ML 10 ML UDC PO ONE (14:55)
[2023-09-20] MEDS ORDERED: ALBUTEROL 0.083% 2.5 MG/3 ML NEBU INH ONE ×2 (14:55→16:04)
[2023-09-20 16:07] VITALS: PULSE 75; RESP 16; O2SAT 96
[2023-09-20 16:39] LABS: FLU A ANTIGEN negative (NEGATIVE); FLU B ANTIGEN negative (NEGATIVE)
[2023-09-20] MEDS ORDERED: ALBU0.0912 INH (16:45)
[2023-09-20] MEDS ORDERED: DEXT30SU56 PO (16:45)
== END 2023-09-20 16:57 | disposition home or self-care (01) ==
LOC: MED 14:25
DX: R05.9 Cough, unspecified (principal); R42 Dizziness and giddiness; Z20.822 Contact with and (suspected) exposure to COVID-19; J45.909 Unspecified asthma, uncomplicated; E11.9 Type 2 diabetes mellitus without complications; I10 Essential (primary) hypertension; Z79.899 Other long term (current) drug therapy; Z79.2 Long term (current) use of antibiotics; Z88.0 Allergy status to penicillin; Z88.8 Allergy status to other drugs, medicaments and biological substances; Z88.5 Allergy status to narcotic agent
CPT/HCPCS: 87426; 87804; 94640; 99283; J7613

== ENCOUNTER 2023-10-03 17:00 | Emergency (ER) | payer OTHER ==
[~2023-10-03] VITALS: Ht 175.3 cm; Wt 126.6 kg
[~2023-10-03 17:00] MED LIST changes: +ALBU0.0912 INH; +DEXT30SU56 PO
[2023-10-03 17:06] VITALS: BP 137/87; PULSE 90; TEMP 98; O2SAT 99
[2023-10-03] MEDS ORDERED: DEXAMETHASONE 10 MG/ML VIAL IM ONE (17:20)
[2023-10-03] MEDS ORDERED: ALBUTEROL SULFATE/IPRATROPIU 3 ML SOL IH ONE (17:20)
[2023-10-03 17:34] VITALS: PULSE 88; RESP 18; O2SAT 100
[2023-10-03] MEDS ORDERED: BENZ100C6 PO (17:43)
[2023-10-03 17:57] LABS: FLU A ANTIGEN negative (NEGATIVE); FLU B ANTIGEN NEGATIVE (NEGATIVE)
== END 2023-10-03 17:57 | disposition home or self-care (01) ==
LOC: MED 17:00
DX: J20.9 Acute bronchitis, unspecified (principal); Z20.822 Contact with and (suspected) exposure to COVID-19; J45.909 Unspecified asthma, uncomplicated; E11.9 Type 2 diabetes mellitus without complications; I10 Essential (primary) hypertension; Z79.899 Other long term (current) drug therapy; Z79.1 Long term (current) use of non-steroidal anti-inflammatories (NSAID); Z79.2 Long term (current) use of antibiotics; Z88.8 Allergy status to other drugs, medicaments and biological substances; Z88.0 Allergy status to penicillin; Z88.5 Allergy status to narcotic agent
CPT/HCPCS: 87426; 87804; 94640; 96372; 99283; J1100

== ENCOUNTER 2023-10-11 22:20 | Emergency (ER) | payer OTHER ==
[~2023-10-11] VITALS: Ht 175.3 cm; Wt 126.6 kg
[~2023-10-11 22:20] MED LIST changes: +BENZ100C6 PO
[2023-10-11 22:22] VITALS: BP 131/83; PULSE 99; RESP 19; TEMP 97.8; O2SAT 99
[2023-10-12] MEDS ORDERED: PRED20TA5 PO (17:49)
[2023-10-12] MEDS ORDERED: PROM118S5 PO (17:49)
[2023-10-12] MEDS ORDERED: ALBU0.0912 IH (17:49)
== END 2023-10-12 00:40 | disposition left against medical advice (07) ==
LOC: MED 22:20
DX: R06.02 Shortness of breath (principal); Z53.21 Procedure and treatment not carried out due to patient leaving prior to being seen by health care provider
CPT/HCPCS: 99281

== ENCOUNTER 2023-10-12 15:21 | Emergency (ER) | payer OTHER ==
[~2023-10-12] VITALS: Ht 175.3 cm; Wt 127.0 kg
[2023-10-12 15:37] VITALS: BP 121/83; PULSE 108; RESP 20; TEMP 98.7; O2SAT 95
[2023-10-12] MEDS ORDERED: ALBUTEROL 0.083% 2.5 MG/3 ML NEBU INH ONE (16:25)
[2023-10-12] MEDS ORDERED: IPRATROPIUM 0.02% 0.5 MG/2.5 ML NEBU INH ONE (16:25)
[2023-10-12] MEDS ORDERED: DEXAMETHASONE 10 MG/ML VIAL IM ONE (16:25)
[2023-10-12 16:59] VITALS: PULSE 98; RESP 20; O2SAT 95
[2023-10-12] MEDS ORDERED: PROM118S5 PO (17:49)
[2023-10-12] MEDS ORDERED: ALBU0.0912 IH (17:49)
[2023-10-12] MEDS ORDERED: PRED20TA5 PO (17:49)
== END 2023-10-12 18:01 | disposition home or self-care (01) ==
LOC: MED 15:21
DX: J45.909 Unspecified asthma, uncomplicated (principal); I10 Essential (primary) hypertension; E11.9 Type 2 diabetes mellitus without complications; Z88.0 Allergy status to penicillin; Z88.8 Allergy status to other drugs, medicaments and biological substances; Z79.4 Long term (current) use of insulin; Z79.899 Other long term (current) drug therapy; Z88.5 Allergy status to narcotic agent
CPT/HCPCS: 71045; 94640; 96372; 99283; J1100; J7613; J7644

== ENCOUNTER 2024-01-07 17:54 | Emergency (ER) | payer OTHER ==
[~2024-01-07] VITALS: Ht 175.3 cm; Wt 122.5 kg
[~2024-01-07 17:54] MED LIST changes: +ALBU0.0912 IH; +PRED20TA5 PO; +PROM118S5 PO
[2024-01-07 18:14] VITALS: BP 123/87; PULSE 89; RESP 18; TEMP 98.3; O2SAT 98
[2024-01-07] MEDS: NACL 0.9% 1,000 ML IV SCH (18:28)
[2024-01-07 18:34] LABS: BASOPHILS % (AUTO) 0.2 % (0.0-2.0); EOSINOPHILS % (AUTO) 0.1 % (0.0-4.0); HEMATOCRIT 39.1 % (36-48); HEMOGLOBIN 12.8 g/dL (12.0-16.0); LYMPHOCYTES # (AUTO) 1.4 K/uL (2.5-16.5); LYMPHOCYTES % (AUTO) 7.5 % (20.5-51.1); MEAN CORPUSCULAR HEMOGLOBIN 24 pg (27-31); MEAN CORPUSCULAR HGB CONC 33 g/dL (33-37); MEAN CORPUSCULAR VOLUME 73.5 fL (80-94); MONOCYTES # (AUTO) 0.4 K/uL (0.8-1.0); MONOCYTES % (AUTO) 2.4 % (1.7-9.3); NEUTROPHILS # (AUTO) 16.3 K/uL (1.8-7.7); NEUTROPHILS % (AUTO) 89.8 % (42.2-75.2); PLATELET COUNT (AUTO) 427 K/uL (140-450); RED BLOOD CELL COUNT(AUTO) 5.31 MIL/uL (4.20-5.40); RED CELL DISTRIBUTION WIDTH 16.5 % (11.6-13.7); WHITE BLOOD COUNT (AUTO) 18.1 K/uL (4.8-10.8)
[2024-01-07 18:50] LABS: ANION GAP 18.5 (8-16); CALCIUM 8.3 mg/dL (8.5-10.1); CREATININE 1.3 mg/dL (0.6-1.3); POTASSIUM 4.5 mmol/L (3.5-5.1)
[2024-01-07 18:53] LABS: ALBUMIN 3.8 g/dL (3.4-5.0); BILIRUBIN,DIRECT 0.1 mg/dL (0.0-0.3); TOTAL BILIRUBIN 0.4 mg/dL (0.0-1.0); TOTAL PROTEIN, SERUM 7.2 g/dL (6.4-8.2)
[2024-01-07 18:54] LABS: APPEARANCE,URINE CLEAR (CLEAR); BILIRUBIN,URINE NEGATIVE (NEGATIVE); BLOOD, URINE NEGATIVE (NEGATIVE); COLOR,URINE YELLOW (YELLOW); LEUKOCYTE ESTERASE ,URINE NEGATIVE (NEGATIVE); NITRITE, URINE NEGATIVE (NEGATIVE); PROTEIN,URINE NEGATIVE (NEGATIVE); UGLUCOSE 3+ (NEGATIVE); UROBILINOGEN,URINE 0.2 EU/dL (0.2 - 1)
[2024-01-07] MEDS: INSULIN REGULAR, HUMAN 100 UNIT/ML VIAL IVP ONE (19:41)
[2024-01-07 21:12] VITALS: BP 135/89; PULSE 85; RESP 17; TEMP 98.1; O2SAT 96
== END 2024-01-07 21:12 | disposition home or self-care (01) ==
LOC: MED 17:54
DX: E11.65 Type 2 diabetes mellitus with hyperglycemia (principal); J45.909 Unspecified asthma, uncomplicated; Z88.0 Allergy status to penicillin; Z88.5 Allergy status to narcotic agent; Z88.8 Allergy status to other drugs, medicaments and biological substances; Z79.4 Long term (current) use of insulin; Z79.899 Other long term (current) drug therapy; Z90.49 Acquired absence of other specified parts of digestive tract
CPT/HCPCS: 36415; 71045; 80048; 80076; 81003; 81025; 82948; 83690; 85025; 96360; 96372; 99284; J1815; J7030